=== PATIENT | male | born 1975 | race American Indian/Alaskan Native ===

== ENCOUNTER 2018-08-05 19:11 | Emergency (ER) | payer BC ==
--- NOTE | 2018-08-05 21:40 | Emergency Department Report ---
ED ENT HPI - General Chief complaint: Nosebleed Stated complaint: NOSE BLEED Time Seen by Provider: 08/05/18 20:53 Source: patient Mode of arrival: Ambulatory Limitations: No Limitations - History of Present Illness Initial comments: This is a 42-year-old male nontoxic, well nourished in appearance, no acute signs of distress presents to the ED with c/o of epistaxis of the right nostril. Patient had 2 episodes of nosebleeds that apparently resolved 4 hours ago. Patient stated that he was sent home from work and is requested for note excuse. Patient denies any dizziness or headache. Patient denies any fever, chills, nausea, vomiting, chest pain, short of breath, headache, stiff neck. Patient states allergies to penicillin with no significant past medical history. Denies any trauma. Denies any difficulty breathing. MD complaint: epistaxis -: This afternoon Severity scale (0 -10): 0 Consistency: now resolved Improves with: none Worsens with: none Associated Symptoms: denies: fever, cough, gum swelling, toothache, pain with swallowing, sore throat, tinnitus, hearing loss, discharge from ear, rhinorrhea - Related Data Previous Rx's Medication Instructions Recorded Last Taken Type Cyclobenzaprine [Flexeril] 10 mg PO TID PRN #30 tablet 06/03/18 Unknown Rx Menthol/Camphor [[place] 1 applicatio TP TID PRN #1 tube 06/03/18 Unknown Rx Ointment] Naproxen [Naprosyn] 500 mg PO BID PRN #30 tablet 06/03/18 Unknown Rx Oxymetazoline 0.05% [Afrin] 2 spray NS BID #1 bottle 08/05/18 Unknown Rx Allergies Allergy/AdvReac Type Severity Reaction Status Date / Time Penicillins Allergy Seizure Verified 08/05/18 19:58 ED Dental HPI - General Chief complaint: Nosebleed Stated complaint: NOSE BLEED Time Seen by Provider: 08/05/18 20:53 Source: patient Mode of arrival: Ambulatory Limitations: No Limitations - Related Data Previous Rx's Medication Instructions Recorded Last Taken Type Cyclobenzaprine [Flexeril] 10 mg PO TID PRN #30 tablet 06/03/18 Unknown Rx Menthol/Camphor [[place] 1 applicatio TP TID PRN #1 tube 06/03/18 Unknown Rx Ointment] Naproxen [Naprosyn] 500 mg PO BID PRN #30 tablet 06/03/18 Unknown Rx Oxymetazoline 0.05% [Afrin] 2 spray NS BID #1 bottle 08/05/18 Unknown Rx Allergies Allergy/AdvReac Type Severity Reaction Status Date / Time Penicillins Allergy Seizure Verified 08/05/18 19:58 ED Review of Systems ROS: Stated complaint: NOSE BLEED Other details as noted in HPI Constitutional: denies: chills, fever Eyes: denies: eye pain, eye discharge, vision change ENT: epistaxis. denies: ear pain, throat pain Respiratory: denies: cough, shortness of breath, wheezing Cardiovascular: denies: chest pain, palpitations Endocrine: no symptoms reported Gastrointestinal: denies: abdominal pain, nausea, diarrhea Genitourinary: denies: urgency, dysuria Musculoskeletal: denies: back pain, joint swelling, arthralgia Skin: denies: rash, lesions Neurological: denies: headache, weakness, paresthesias Psychiatric: denies: anxiety, depression Hematological/Lymphatic: denies: easy bleeding, easy bruising ED Past Medical Hx - Past Medical History Previous Medical History?: No - Surgical History Past Surgical History?: No - Social History Smoking Status: Never Smoker Substance Use Type: None - Medications Home Medications: Home Medications Medication Instructions Recorded Confirmed Last Taken Type Cyclobenzaprine [Flexeril] 10 mg PO TID PRN #30 tablet 06/03/18 Unknown Rx Menthol/Camphor [[place] 1 applicatio TP TID PRN #1 tube 06/03/18 Unknown Rx Ointment] Naproxen [Naprosyn] 500 mg PO BID PRN #30 tablet 06/03/18 Unknown Rx Oxymetazoline 0.05% [Afrin] 2 spray NS BID #1 bottle 08/05/18 Unknown Rx ED Physical Exam - General Limitations: No Limitations General appearance: alert, in no apparent distress - Head Head exam: Present: atraumatic, normocephalic - Eye Eye exam: Present: normal appearance - ENT ENT exam: Present: normal exam, other (no nose bleed present. No nasal hematoma or foreign body. ) - Neck Neck exam: Present: normal inspection, full ROM ED Course Vital Signs 08/05/18 19:55 Temperature 99.6 F Pulse Rate 101 H Respiratory 18 Rate Blood Pressure 121/80 O2 Sat by Pulse 100 Oximetry - Reevaluation(s) Reevaluation #1: 08/05/18 21:44 Patient is speaking in full sentences with no signs of distress noted. Critical care attestation.: If time is entered above; I have spent that time in minutes in the direct care of this critically ill patient, excluding procedure time. ED Disposition Clinical Impression: Right-sided epistaxis Disposition: - TO HOME OR SELFCARE Is pt being admited?: No Does the pt Need Aspirin: No Condition: Stable Instructions: Epistaxis (ED) Additional Instructions: Follow-up with a primary care/ENT doctor in 3-5 days or if symptoms worsen and continue return to emergency room as soon as possible. Prescriptions: Oxymetazoline 0.05% [Afrin] 2 spray NS BID #1 bottle Referrals: PRIMARY CAREMD [Referring] - 3-5 Days ZAHRAA LEI MD [Staff Physician] - 3-5 Days [facility] [Outside] - 3-5 Days Forms: Work/School Release Form(ED)
== END 2018-08-05 21:57 | disposition home or self-care (01) ==
LOC: ED 19:11
CPT/HCPCS: 99282

== ENCOUNTER 2019-01-18 19:01 | Emergency (ER) | payer BC ==
[2019-01-18 19:17] VITALS: BP 130/85
--- NOTE | 2019-01-18 19:17 | Event Note ---
ED Screening Note Date of service: 01/18/19 Time: 19:11 ED Screening Note: 43 y/o male comes in for neck pain and burning. Denies any trauma. Pain for 3 weeks. This initial assessment/diagnostic orders/clinical plan/treatment(s) is/are subject to change based on patients health status, clinical progression and re- assessment by fellow clinical providers in the ED. Further treatment and workup at subsequent clinical providers discretion. Patient/guardian urged not to elope from the ED as their condition may be serious if not clinically assessed and managed. Initial orders include:
--- NOTE | 2019-01-18 19:26 | Emergency Department Report ---
ED Back Pain/Injury HPI - General Chief Complaint: Back Pain/Injury Stated Complaint: BURNING IN BACK/NECK Source: patient Limitations: No Limitations - History of Present Illness Initial Comments: 43 male comes in for neck strain. 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 Patient reports that it walker and is worst with lifting. MD Complaint: back pain Onset/Timin -: week(s) Similar Symptoms Previously: Yes Place: work Radiation: none Context: while lifting Treatments Prior to Arrival: other (none) - Related Data Previous Rx's Medication Instructions Recorded Last Taken Type Cyclobenzaprine [Flexeril] 10 mg PO TID PRN #30 tablet 06/03/18 Unknown Rx Menthol/Camphor [[place] 1 applicatio TP TID PRN #1 tube 06/03/18 Unknown Rx Ointment] Oxymetazoline 0.05% [Afrin] 2 spray NS BID #1 bottle 08/05/18 Unknown Rx Baclofen [Lioresal] 10 mg PO TID #15 tab 01/18/19 Unknown Rx Naproxen [Naprosyn TAB] 500 mg PO BID PRN #30 tablet 01/18/19 Unknown Rx Allergies Allergy/AdvReac Type Severity Reaction Status Date / Time Penicillins Allergy Seizure Verified 08/05/18 19:58 ED Review of Systems ROS: Stated complaint: BURNING IN BACK/NECK Other details as noted in HPI ED Past Medical Hx - Past Medical History Previous Medical History?: No - Surgical History Past Surgical History?: No - Social History Smoking Status: Former Smoker Substance Use Type: None - Medications Home Medications: Home Medications Medication Instructions Recorded Confirmed Last Taken Type Cyclobenzaprine [Flexeril] 10 mg PO TID PRN #30 tablet 06/03/18 Unknown Rx Menthol/Camphor [[place] 1 applicatio TP TID PRN #1 tube 06/03/18 Unknown Rx Ointment] Oxymetazoline 0.05% [Afrin] 2 spray NS BID #1 bottle 08/05/18 Unknown Rx Baclofen [Lioresal] 10 mg PO TID #15 tab 01/18/19 Unknown Rx Naproxen [Naprosyn TAB] 500 mg PO BID PRN #30 tablet 01/18/19 Unknown Rx ED Physical Exam - General Limitations: No Limitations General appearance: alert, in no apparent distress - Head Head exam: Present: atraumatic, normocephalic - Eye Eye exam: Present: normal appearance - ENT ENT exam: Present: mucous membranes moist - Neck Neck exam: Present: normal inspection, tenderness, full ROM - Neurological Exam Neurological exam: Present: alert, oriented X3 - Psychiatric Psychiatric exam: Present: normal affect, normal mood - Skin Skin exam: Present: warm, dry, intact, normal color. Absent: rash ED Course Vital Signs 01/18/19 19:15 Temperature 98.1 F Pulse Rate 89 Respiratory 18 Rate Blood Pressure 130/85 O2 Sat by Pulse 98 Oximetry ED Medical Decision Making - Medical Decision Making 43 y/o male comes in for neck pain and burning without injury. Dx with muscle strain and rx for baclofen and naproxen. Critical care attestation.: If time is entered above; I have spent that time in minutes in the direct care of this critically ill patient, excluding procedure time. ED Disposition Clinical Impression: Cervical myofascial strain Qualifiers: Encounter type: initial encounter Qualified Code(s): S16.1XXA - Strain of muscle, fascia and tendon at neck level, initial encounter Disposition: DC-01 TO HOME OR SELFCARE Is pt being admited?: No Does the pt Need Aspirin: No Condition: Stable Additional Instructions: Take meds as prescribed. Try over the counter Aspercream or tiger. Prescriptions: Baclofen [Lioresal] 10 mg PO TID #15 tab Naproxen [Naprosyn TAB] 500 mg PO BID PRN #30 tablet PRN Reason: Pain , Severe (7-10) Referrals: [facility] [Provider Group] - 3-5 Days
== END 2019-01-18 19:30 | disposition home or self-care (01) ==
LOC: ED 19:01
DX: S16.1XXA Strain of muscle, fascia and tendon at neck level, initial encounter (principal); Z87.891 Personal history of nicotine dependence; Z79.899 Other long term (current) drug therapy; Z88.0 Allergy status to penicillin; X50.0XXA Overexertion from strenuous movement or load, initial encounter; Y93.89 Activity, other specified; Y92.69 Other specified industrial and construction area as the place of occurrence of the external cause; Y99.8 Other external cause status
CPT/HCPCS: 99282

== ENCOUNTER 2019-01-30 20:08 | Emergency (ER) | payer BC ==
[2019-01-30 20:19] VITALS: BP 109/82
[2019-01-30] MEDS ORDERED: TORADOL IM ONE (23:00)
[2019-01-30] MEDS ORDERED: DELTASONE PO ONE (23:00)
--- NOTE | 2019-01-30 23:44 | Emergency Department Report ---
ED Neck Pain/Injury HPI - General Chief Complaint: Back Pain/Injury Stated Complaint: RIGHT SHOULDER PAIN Time Seen by Provider: 01/30/19 21:14 Mode of arrival: Ambulatory Limitations: No Limitations - History of Present Illness Initial Comments: This is a 43-year-old male nontoxic, well nourished in appearance, no acute signs of distress presents to the ED with c/o of acute on chronic left upper back pain. 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 Patient denies any radiation of pain. Patient denies any trauma. Denies any bladder or bowel instability. Patient denies any urinary symptoms. Denies any fever, chills, nausea, vomiting, headache, stiff neck, chest pain or shortness of breath. Patient denies any numbness or tingling. Patient states allergies to penicillin with no significant past medical history. MD Complaint: upper back pain -: days(s) (2) Place: work Severity: mild Severity scale (0 -10): 8 Quality: aching Consistency: intermittent Improves With: immobilization Worsens With: movement of extremity, movement of neck Associated Symptoms: none. denies: headache, fever, numbness, tingling, weakness, vertigo, difficulty walking, swollen glands, difficulty swallowing, nausea, vomiting - Related Data Previous Rx's Medication Instructions Recorded Last Taken Type Cyclobenzaprine [Flexeril] 10 mg PO TID PRN #30 tablet 06/03/18 Unknown Rx Menthol/Camphor [[place] 1 applicatio TP TID PRN #1 tube 06/03/18 Unknown Rx Ointment] Oxymetazoline 0.05% [Afrin] 2 spray NS BID #1 bottle 08/05/18 Unknown Rx Baclofen [Lioresal] 10 mg PO TID #15 tab 01/18/19 Unknown Rx Naproxen [Naprosyn TAB] 500 mg PO BID PRN #30 tablet 01/18/19 Unknown Rx Cyclobenzaprine [Flexeril] 10 mg PO QHS PRN #10 tablet 01/30/19 Unknown Rx Ibuprofen [Motrin] 600 mg PO Q8H PRN #20 tablet 01/30/19 Unknown Rx Allergies Allergy/AdvReac Type Severity Reaction Status Date / Time Penicillins Allergy Seizure Verified 08/05/18 19:58 ED Review of Systems ROS: Stated complaint: RIGHT SHOULDER PAIN Other details as noted in HPI Constitutional: denies: chills, fever Eyes: denies: eye pain, eye discharge, vision change ENT: denies: ear pain, throat pain Respiratory: denies: cough, shortness of breath, wheezing Cardiovascular: denies: chest pain, palpitations Endocrine: no symptoms reported Gastrointestinal: denies: abdominal pain, nausea, diarrhea Genitourinary: denies: urgency, dysuria Musculoskeletal: back pain (upper). denies: joint swelling, arthralgia Skin: denies: rash, lesions Neurological: denies: headache, weakness, paresthesias Psychiatric: denies: anxiety, depression Hematological/Lymphatic: denies: easy bleeding, easy bruising ED Past Medical Hx - Past Medical History Previous Medical History?: No - Surgical History Past Surgical History?: No - Social History Smoking Status: Former Smoker Substance Use Type: None - Medications Home Medications: Home Medications Medication Instructions Recorded Confirmed Last Taken Type Cyclobenzaprine [Flexeril] 10 mg PO TID PRN #30 tablet 06/03/18 Unknown Rx Menthol/Camphor [[place] 1 applicatio TP TID PRN #1 tube 06/03/18 Unknown Rx Ointment] Oxymetazoline 0.05% [Afrin] 2 spray NS BID #1 bottle 08/05/18 Unknown Rx Baclofen [Lioresal] 10 mg PO TID #15 tab 01/18/19 Unknown Rx Naproxen [Naprosyn TAB] 500 mg PO BID PRN #30 tablet 01/18/19 Unknown Rx Cyclobenzaprine [Flexeril] 10 mg PO QHS PRN #10 tablet 01/30/19 Unknown Rx Ibuprofen [Motrin] 600 mg PO Q8H PRN #20 tablet 01/30/19 Unknown Rx ED Physical Exam - General Limitations: No Limitations General appearance: alert, in no apparent distress - Head Head exam: Present: atraumatic, normocephalic - Eye Eye exam: Present: normal appearance - Neck Neck exam: Present: normal inspection, full ROM. Absent: tenderness, meningismus, lymphadenopathy - Extremities Exam Extremities exam: Present: normal inspection, full ROM, normal capillary refill. Absent: tenderness, joint swelling - Back Exam Back exam: Present: normal inspection, full ROM, paraspinal tenderness (left sided cervical paraspinal). Absent: tenderness, CVA tenderness (R), CVA tenderness (L), muscle spasm, vertebral tenderness, rash noted - Neurological Exam Neurological exam: Present: alert, oriented X3, normal gait - Psychiatric Psychiatric exam: Present: normal affect, normal mood - Skin Skin exam: Present: warm, dry, intact, normal color. Absent: rash ED Course Vital Signs 01/30/19 20:15 Temperature 98.2 F Pulse Rate 78 Respiratory 18 Rate Blood Pressure 109/82 O2 Sat by Pulse 99 Oximetry - Reevaluation(s) Reevaluation #1: 01/30/19 23:43 Patient is speaking in full sentences with no signs of distress noted. ED Medical Decision Making - Medical Decision Making This is a 43-year-old male that presents with upper back strain. Patient is stable was examined by me. There is no spinal tenderness. There is no cauda equina syndrome during examination. No bladder or bowel instability. Patient received Toradol 60 mg IM and prednisone in the ED which stated that his symptoms has resolved and subsided. Patient is discharged with muscle relaxant and Motrin. Patient was instructed not to operate any machinery while taking muscle relaxant as they cause her drowsiness. Patient was referred to Follow-up with a primary care doctor in 3-5 days or if symptoms worsen and continue return to emergency room as soon as possible. At time of discharge, the patient does not seem toxic or ill in appearance. No acute signs of distress noted. Patient agrees to discharge treatment plan of care. No further questions noted by the patient. This chart is dictated with using [employer] Critical care attestation.: If time is entered above; I have spent that time in minutes in the direct care of this critically ill patient, excluding procedure time. ED Disposition Clinical Impression: Cervical muscle strain Disposition: DC-01 TO HOME OR SELFCARE Is pt being admited?: No Does the pt Need Aspirin: No Condition: Stable Instructions: Muscle Strain (ED), Cyclobenzaprine (By mouth) Additional Instructions: Follow-up with your primary care doctor in 3-5 days or if symptoms worsen such as bladder or bowel stability, chest pain, short of breath, numbness or tingling sensation in extremities, headache, dizziness, visual changes, nausea vomiting, or abdominal pain, return back to emergency room as was possible. Take ibuprofen and Flexeril as prescribed. Do not operate heavy machinery while taking Flexeril due to sedation Prescriptions: Cyclobenzaprine [Flexeril] 10 mg PO QHS PRN #10 tablet PRN Reason: Muscle Spasm Ibuprofen [Motrin] 600 mg PO Q8H PRN #20 tablet PRN Reason: Pain Referrals: ERIBERTO YOUSSEF MD [Primary Care Provider] - 3-5 Days PRIMARY CARE, [Referring] - 3-5 Days VEL AGUILAR MD [Staff Physician] - 3-5 Days [facility] [Outside] - 3-5 Days [facility] [Outside] - 3-5 Days Forms: Work/School Release Form(ED)
== END 2019-01-30 23:50 | disposition home or self-care (01) ==
LOC: ED 20:08
DX: S16.1XXA Strain of muscle, fascia and tendon at neck level, initial encounter (principal); Z87.891 Personal history of nicotine dependence; X58.XXXA Exposure to other specified factors, initial encounter; Y93.89 Activity, other specified; Y92.89 Other specified places as the place of occurrence of the external cause; Y99.8 Other external cause status
CPT/HCPCS: 96372; 99282; J1885; J7512

== ENCOUNTER 2021-07-07 08:57 | Emergency (ER) | payer SELFPAY ==
[2021-07-07 09:03] VITALS: BP 109/61
--- NOTE | 2021-07-07 11:09 | Emergency Department Report ---
Minor Respiratory - HPI Chief Complaint: Fever Stated Complaint: body aches, hot flashes Time Seen by Provider: 07/07/21 10:12 Duration: Today Severity: moderate Minor Respiratory: Yes Cough, Yes Fever, No Sore Throat, No Shortness of Breath Other History: 45-year-old -[place] male that is unvaccinated for Covid presents to the emergency room stating he started having a fever hot sweats cough chills body aches runny nose and headache that started last night. 1 episode of vomiting when he got hot last night. Patient is taking nothing for his symptoms. He did not test for Covid. He has no past medical history. Patient currently takes no meds and has an allergy to penicillin. Patient denies any chest pain no shortness of breath. ED Review of Systems ROS: Stated complaint: body aches, hot flashes Other details as noted in HPI ED Past Medical Hx - Past Medical History Previous Medical History?: No - Surgical History Past Surgical History?: No - Social History Smoking Status: Former Smoker Substance Use Type: None - Medications Home Medications: Home Medications Medication Instructions Recorded Confirmed Last Taken Type Cyclobenzaprine [Flexeril] 10 mg PO TID PRN #30 tablet 06/03/18 Unknown Rx Menthol/Camphor [[place] 1 applicatio TP TID PRN #1 tube 06/03/18 Unknown Rx Ointment] Oxymetazoline 0.05% [Afrin] 2 spray NS BID #1 bottle 08/05/18 Unknown Rx Baclofen [Lioresal] 10 mg PO TID #15 tab 01/18/19 Unknown Rx Naproxen [Naprosyn TAB] 500 mg PO BID PRN #30 tablet 01/18/19 Unknown Rx Cyclobenzaprine [Flexeril] 10 mg PO QHS PRN #10 tablet 01/30/19 Unknown Rx Ibuprofen [Motrin] 600 mg PO Q8H PRN #20 tablet 01/30/19 Unknown Rx Minor Respiratory Exam - Exam General: Vital signs noted. No distress. Alert and acting appropriately. HEENT: Yes Moist Mucous Membranes, No Pharyngeal Erythema, No Pharyngeal Exudates, No Rhinorrhea, No Conjuctival Injection, No Frontal Tenderness, No Maxillary Tenderness Ear: Neither TM Bulge, Neither TM Erythema, Neither EAC Pain, Neither EAC Discharge Neck: Yes Supple, No Adenopathy Lungs: Yes Good Air Exchange, No Wheezes, No [place], No Stridor, No Cough, No Labored Respirations, No Retractions, No Use of Accessory Muscles, No Other Abnormal Lung Sounds Heart: Yes Regular, No Murmur Abdomen: Yes Normal Bowel Sounds, No Tenderness, No Peritoneal Signs Skin: No Rash, No Edema Neurologic: Alert and oriented, no deficits. Musculoskeletal: Unremarkable. ED Course Vital Signs 07/07/21 07/07/21 08:59 09:01 Temperature 100.4 F H 100.4 F H Pulse Rate 103 H 101 H Respiratory 17 16 Rate Blood Pressure 109/65 109/61 [Right] O2 Sat by Pulse 98 99 Oximetry ED Medical Decision Making - Medical Decision Making 45-year-old -[place] male that is unvaccinated for Covid presents to the emergency room stating he started having a fever hot sweats cough chills body aches runny nose and headache that started last night. 1 episode of vomiting when he got hot last night. Patient is taking nothing for his symptoms. He did not test for Covid. He has no past medical history. Patient currently takes no meds and has an allergy to penicillin. Patient denies any chest pain no shortness of breath. Discussed with patient he needs to get Covid tested. Tylenol ibuprofen for fever and body aches. Increase his fluid intake advance his diet as tolerated. Needs to quarantine for the next 5 days. Critical care attestation.: If time is entered above; I have spent that time in minutes in the direct care of this critically ill patient, excluding procedure time. ED Disposition Clinical Impression: Suspected COVID-19 virus infection Disposition: HOME / SELF CARE / HOMELESS Is pt being admited?: No Does the pt Need Aspirin: No Condition: Stable Instructions: COVID-19 Frequently Asked Questions, COVID-19: How to Protect Yourself and Others - CDC, Prevent the Spread of COVID-19 if You Are Sick - CDC Additional Instructions: Your symptoms appear most consistent with a nonspecific viral syndrome. However, given this current pandemic, COVID-19 is in the differential of possibilities. I do recommend outpatient Covid 19 testing. In the meantime, isolate/quarantine yourself and stay away from anyone who is elderly, immunocompromised or chronically ill. You can use ibuprofen every 6-8 hours and Tylenol every 4-8 hours, using the dosing on the back of the bottle, as needed for any fever or body aches. Return to the emergency department with any worsening of your symptoms, development of chest pain or shortness of breath, or with any acute distress. Referrals: PRIMARY CARE, [Primary Care Provider] - 3-5 Days Forms: Work/School Release Form(ED) Time of Disposition: 11:09
== END 2021-07-07 11:17 | disposition home or self-care (01) ==
LOC: ED 08:57
DX: R51.9 Headache, unspecified (principal); R11.10 Vomiting, unspecified; Z87.891 Personal history of nicotine dependence; Z20.822 Contact with and (suspected) exposure to COVID-19
CPT/HCPCS: 99282